=== PATIENT | male | born 1990 | race African-American/Black ===

== ENCOUNTER 2020-02-03 13:37 | Emergency (ER) | payer OTHER ==
[~2020-02-03] VITALS: Ht 165.1 cm; Wt 84.0 kg
[2020-02-03 14:31] VITALS: BP 128/42
[2020-02-03] MEDS ORDERED: LIDOCAINE HCL/PF 1% 10 MG/ML 5ML VIAL IJ ONE (16:15)
[2020-02-03] MEDS: IBUPROFEN 400MG TABLET PO ONE (17:53)
== END 2020-02-03 18:35 | disposition home or self-care (01) ==
LOC: ER 13:37
DX: S63.257A Unspecified dislocation of left little finger, initial encounter (principal); Z88.1 Allergy status to other antibiotic agents; Z88.8 Allergy status to other drugs, medicaments and biological substances; X58.XXXA Exposure to other specified factors, initial encounter; Y93.89 Activity, other specified; Y92.89 Other specified places as the place of occurrence of the external cause; Y99.8 Other external cause status
CPT/HCPCS: 26770; 73140; 99284; J3490